=== PATIENT | male | born 1990 | race Caucasian/White ===

== ENCOUNTER 2019-05-01 05:42 | Emergency (ER) | payer SELFPAY ==
[~2019-05-01] VITALS: Ht 177.8 cm; Wt 81.6 kg
[~2019-05-01 05:42] MED LIST: ALPRAZOLAM1 MG ORAL; VALIUM10 MG ORAL; XANAX0.5 MG ORAL
[2019-05-01] MEDS ORDERED: NKM (05:51)
[2019-05-01 05:53] VITALS: BP 130/95
--- NOTE | 2019-05-01 05:55 | NUR ---
ER Nurse Note: Pt walked in c/o nausea, abd pain. Pt stated he took Fentyl, unknown dose, around 0000. Pt stated he kristen weak, pain in abd. Pt no vomiting, VSS, stable. Will continue to montior.
[2019-05-01] MEDS ORDERED: Mylanta II UD 30ml ORAL ONE (06:00)
[2019-05-01] MEDS ORDERED: Ondansetron ODT 8mg tab ORAL ONE (06:00)
[2019-05-01] MEDS ORDERED: Lidocaine 2% Visc 15ml soln ORAL ONE (06:00)
[2019-05-01] MEDS ORDERED: Dicyclomine HCl 10mg/5ml oral soln ORAL ONE (06:00)
[2019-05-01] MEDS ORDERED: ZOFRAN4 MG ORAL (06:06)
[2019-05-01] MEDS ORDERED: CLONIDINE HCL0.1 MG PO (06:06)
[2019-05-01] MEDS ORDERED: DICYCLOMINE HCL10 MG ORAL (06:06)
[2019-05-01] MEDS ORDERED: PEPCID AC20 M2 PO (06:06)
--- NOTE | 2019-05-01 06:07 | Emergency Room Report ---
History of Present Illness General Chief Complaint: Nausea Source: Patient Present Illness HPI 28-year-old male history of fentanyl abuse history of utilizing pseudonym's in order to obtain scheduled prescriptions, patient is requesting pain medications , patient states he is fentanyl prior to coming around 12 AM, he is now having nausea vomiting diarrhea and abdominal cramps, patient presents for evaluation Allergies: Coded Allergies: No Known Allergies (Unverified , 04/11/19) Patient History Past Medical History: see triage record Social History: Reports: smoking, drug use - Fentanyl Reviewed Nursing Documentation: PMH: Agreed; PSxH: Agreed Nursing Documentation-PMH Past Medical History: No History, Except For Review of Systems All Other Systems: negative except mentioned in HPI Physical Exam Vital Signs Date Time Temp Pulse Resp B/P (MAP) Pulse Ox O2 Delivery O2 Flow Rate FiO2 05/01/19 05:48 98.1 98 13 130/95 (107) 100 Room Air General Appearance: well appearing, no apparent distress Head: normocephalic, atraumatic ENT: hearing grossly normal, normal voice Neck: full range of motion, supple Respiratory: no respiratory distress, speaking full sentences Musculoskeletal: no calf tenderness Neurologic: alert, normal gait Psychiatric: mood/affect normal Skin: other - Track gutierres on arms Medical Decision Making Diagnostic Impression: Primary Impression: Opioid withdrawal ER Course 28-year-old male presents with opioid withdrawal, patient counseled that he will not receive any pain medications in the ED, patient was also confronted that he is breaking the law by using pseudonym's patient counseled that he must give his proper name and ID will provide patient with symptomatic control disposition home with return precautions Last Vital Signs Date Time Temp Pulse Resp B/P (MAP) Pulse Ox O2 Delivery O2 Flow Rate FiO2 05/01/19 05:53 98.1 98 13 130/95 100 Room Air Disposition: HOME, SELF-CARE Condition: Stable Scripts Dicyclomine Hcl* (DICYCLOMINE HCL*) 10 Mg Capsule 10 MG ORAL QID PRN for Abdominal cramps, #20 CAP Prov: Jamaal Perez MD 05/01/19 Clonidine Hcl (CLONIDINE HCL) 0.1 Mg Tablet 0.1 MG PO TID PRN for Abdominal cramps, #21 TAB Prov: Jamaal Perez MD 05/01/19 Famotidine (PEPCID AC) 20 Mg Tablet 20 MG PO BID, #60 TAB Prov: Jamaal Perez MD 05/01/19 Ondansetron (Zofran) 4 Mg Tablet 4 MG ORAL Q8H PRN for Nausea & Vomiting, #30 TAB 0 Refills Prov: Jamaal Perez MD 05/01/19 Referrals: NOT CHOSEN IPA/,REFERRING (PCP) [facility] Patient Instructions: Opioid Use Disorder, Opioid Withdrawal Additional Instructions: The patient was provided with discharge instructions, notified to follow-up with a primary care doctor and or specialist in the next 24-48 hours, and to return to the ED if they have worsening of their symptoms. Please note that this report is being documented using [employer] technology. This can lead to erroneous entry secondary to incorrect interpretation by the dictating instrument. Jamaal Perez MD May 01, 2019 06:07
[2019-05-01 06:31] VITALS: BP 133/96
--- NOTE | 2019-05-01 06:31 | NUR ---
ER Nurse Note: Pt seen, treated, medically cleared for discharge by ERMD. Discharge instuctions and prescriptions given with repeat verbalization by pt. Emphasized to follow up with primay care provider. All orders completed per ERMD orders. Pt a&ox4, VSS, no signs of distress. ID band removed. All questions answered per pt's questions. 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 Provided pt [facility] address. Pt stated he will go to his friends place but did not share the location. Food offered. Pt left with all belongings with appropriate clothing, left with own transportation.
== END 2019-05-01 06:31 | disposition home or self-care (01) ==
LOC: EMR 05:52
DX: F11.23 Opioid dependence with withdrawal (principal); F17.200 Nicotine dependence, unspecified, uncomplicated
CPT/HCPCS: 99282; Q0162

== ENCOUNTER 2019-08-11 16:00 | Emergency (ER) | payer SELFPAY ==
[~2019-08-11] VITALS: Ht 180.3 cm; Wt 72.6 kg
[~2019-08-11 16:00] MED LIST changes: +CLONIDINE HCL0.1 MG PO; +DICYCLOMINE HCL10 MG ORAL; +NKM; +PEPCID AC20 M2 PO; +ZOFRAN4 MG ORAL
[2019-08-11 16:22] VITALS: BP 120/78
[2019-08-11] MEDS ORDERED: Ketorolac 30mg Inj IM ONE ×2 (16:30→17:30)
--- NOTE | 2019-08-11 16:44 | NUR ---
ED Nurse Note: x-ray on bedside.
--- NOTE | 2019-08-11 17:14 | Emergency Room Report ---
History of Present Illness General Chief Complaint: Multiple Trauma/Fall Source: Patient Present Illness HPI 29-year-old male with significant history of drug-seeking behavior, opiate abuse , and anxiety here complaining of pain in right lower extremity after fall 1939 5 minutes prior to arrival. Patient refer states that he did hit his head however when told that we need to do a head CT scan as patient noticed slight loss of consciousness and nothing but Tylenol can be given prior to head CT scan to reduce the risk of increased bleeding patient changes the story and states that he did not hit his head. Head appears atraumatic. Keeps insisting on getting narcotics for pain as he cannot move however when I entered the room patient was moving his arms and legs around and talking the phone. Rates the pain 10 out of 10 with radiation denying tingling numbness. Patient also complains of anxiety and wants anxiety medication. Extensive cures history has been noted. Denies all other associate symptoms such as abdominal pain, nausea vomiting, chest pain, shortness of breath, headache and dizziness. Allergies: Coded Allergies: No Known Allergies (Unverified , 04/11/19) Patient History Past Medical History: see triage record Past Surgical History: unable to obtain Pertinent Family History: none Immunizations: UTD Reviewed Nursing Documentation: PMH: Agreed; PSxH: Agreed Nursing Documentation-PMH Past Medical History: No History, Except For History Of Psychiatric Problem: Yes - anxiety Review of Systems All Other Systems: negative except mentioned in HPI Physical Exam Vital Signs Date Time Temp Pulse Resp B/P (MAP) Pulse Ox O2 Delivery O2 Flow Rate FiO2 08/11/19 16:08 98.1 100 19 119/63 (81) 98 Room Air Sp02 EP Interpretation: reviewed, normal General Appearance: no apparent distress, alert, GCS 15, non-toxic Head: normocephalic, atraumatic Eyes: bilateral eye normal inspection, bilateral eye PERRL ENT: hearing grossly normal, normal pharynx, no angioedema, normal voice Neck: full range of motion, supple/symm/no masses Respiratory: chest non-tender, lungs clear, normal breath sounds, no rhonchi, no respiratory distress, no retraction, no accessory muscle use, no wheezing, speaking full sentences Cardiovascular #1: regular rate, rhythm, no edema, no murmur, normal capillary refill Cardiovascular #2: 2+ dorsalis pedis (R), 2+ dorsalis pedis (L) Gastrointestinal: normal bowel sounds, non tender, soft, non-distended, no guarding, no rebound Rectal: deferred Genitourinary: no CVA tenderness Musculoskeletal: back normal, normal range of motion, digits/nails normal, no calf tenderness, pelvis stable, gait/station normal, non-tender Neurologic: alert, motor strength/tone normal, oriented x3, sensory intact, responsive, speech normal Psychiatric: judgement/insight normal, memory normal, mood/affect normal, no suicidal/homicidal ideation Skin: no rash Lymphatic: no adenopathy Medical Decision Making PA Attestation All diagnoses and treatment plans were reviewed and discussed with my supervising physician Dr. Tavarez Diagnostic Impression: Primary Impression: Multiple contusions Additional Impression: Drug-seeking behavior ER Course 29-year-old male with significant history of drug-seeking behavior, opiate abuse , and anxiety here complaining of pain in right lower extremity after fall 1940 5 minutes prior to arrival. Patient refer states that he did hit his head however when told that we need to do a head CT scan as patient noticed slight loss of consciousness and nothing but Tylenol can be given prior to head CT scan to reduce the risk of increased bleeding patient changes the story and states that he did not hit his head. Head appears atraumatic. Keeps insisting on getting narcotics for pain as he cannot move however when I entered the room patient was moving his arms and legs around and talking the phone. Rates the pain 10 out of 10 with radiation denying tingling numbness. Patient also complains of anxiety and wants anxiety medication. Extensive cures history has been noted. Denies all other associate symptoms such as abdominal pain, nausea vomiting, chest pain, shortness of breath, headache and dizziness. Ddx considered but are not limited to: Knee sprain, strain, fracture, contusion , meniscus tear injury, multiple contusions Vital signs: are WNL, pt. is afebrile H&PE are most consistent with: Multiple contusion ORDERS: Knee x-ray, tib-fib x-ray, hip and pelvic x-ray, Motrin, lidocaine patch ER intervention: 2 injections of Toradol 15 mg IM each DISCHARGE: At this time pt. is stable for d/c to home. Will provide printed patient care instructions, and any necessary prescriptions. Care plan and follow up instructions have been discussed with the patient prior to discharge. Drug-seeking behavior is been noticed I told patient that no morphine or no narcotics can be given as patient requested. Patient raised his voice and insistent on getting narcotics. Patient to follow with pain management I explained to him that due to his extensive cures history no narcotics can be given in the emergency department at this time. Also noted indication due to extent of patient's injuries for morphine injection. Patient to follow-up with pain management. Other X-Ray Diagnostic Results Other X-Ray Diagnostic Results #1: X-Ray ordered: Right hip and pelvis # of Views/Limited Vs Complete: 3 View Indication: Pain EP Interpretation: Yes PA Xray: Interpretation reviewed, by supervising MD, and agrees with findings. Interpretation: no dislocation, no soft tissue swelling, no fractures Impression: No acute disease Electronically Signed by: Reyna Bauer PA-C Other X-Ray Diagnostic Results #2: X-Ray ordered: Right knee # of Views/Limited Vs Complete: 2 View Indication: Pain EP Interpretation: Yes PA Xray: Interpretation reviewed, by supervising MD, and agrees with findings. Interpretation: no dislocation, no soft tissue swelling, no fractures Impression: No acute disease Electronically Signed by: Reyna Bauer PA-C Other X-Ray Diagnostic Results #3: X-Ray ordered: Right tib-fib # of Views/Limited Vs Complete: 3 View Indication: Pain EP Interpretation: Yes PA Xray: Interpretation reviewed, by supervising MD, and agrees with findings. Interpretation: no dislocation, no soft tissue swelling, no fractures Impression: No acute disease Electronically Signed by: Reyna Bauer PA-C Last Vital Signs Date Time Temp Pulse Resp B/P (MAP) Pulse Ox O2 Delivery O2 Flow Rate FiO2 08/11/19 16:22 100 19 Room Air 08/11/19 16:22 98.1 120/78 98 Disposition: HOME, SELF-CARE Condition: Stable Scripts Lidocaine Patch* (Lidoderm Patch*) 1 Each Adh..patch 1 PATCH TOPIC DAILY, #7 PATCH 0 Refills Patch(es) may remain in place for up to 12 hours in any 24-hour period. Prov: Reyna Guerra 08/11/19 Ibuprofen* (MOTRIN*) 600 Mg Tablet 600 MG ORAL Q8H PRN for For Pain, #30 TAB 0 Refills Prov: Reyna Guerra 08/11/19 Patient Instructions: Contusion, [id number] Additional Instructions: Take medication as directed, follow-up with your primary care provider, at this time no narcotics can be prescribed as you should be getting them from pain management due to your history of taking narcotics. No anxiety medication can be given as you need to establish a primary care and psychiatrist in order to write them. Reyna Guerra Aug 11, 2019 17:14
[2019-08-11] MEDS ORDERED: IBUPROFEN600 MG ORAL (17:15)
[2019-08-11] MEDS ORDERED: LIDODERM700 M1 TOPIC (17:15)
[2019-08-11] MEDS ORDERED: Ketorolac 30mg Inj ONE (17:22)
[2019-08-11 17:30] VITALS: BP 120/78
--- NOTE | 2019-08-11 17:30 | NUR ---
ER DISCHARGE NOTE: Pt is cleared to be discharge per ERMD,. Pt is AOx4, on RA, VSS. pt was given dc and prescription instructions, pt was able to verbalize understanding, pt id band removed. pt is able to ambulate with steady gait. Pt left ER with all belongings.
--- NOTE | 2019-08-12 10:22 | Diagnostic Imaging Report ---
Indication: Trauma, pain, status post fall Technique: One view the pelvis, 2 views of the right hip Comparison: none Findings: No acute fractures. No dislocations. Joint spaces are preserved. Impression: Negative
--- NOTE | 2019-08-12 10:23 | Diagnostic Imaging Report ---
Indication: Trauma, pain, status post fall Technique: 2 views of the right knee Comparison: none Findings: No acute fractures. No dislocations. The joint spaces are preserved Impression: Negative
--- NOTE | 2019-08-12 10:24 | Diagnostic Imaging Report ---
Indication: Pain, trauma, status post fall Technique: 2 views of the right tibia and fibula Comparison: none Findings: No acute fractures. No dislocations. The joint spaces are preserved Impression: Negative
== END 2019-08-11 17:30 | disposition home or self-care (01) ==
LOC: EMR 16:30
DX: M79.604 Pain in right leg (principal); F41.9 Anxiety disorder, unspecified; Z76.5 Malingerer [conscious simulation]; W19.XXXA Unspecified fall, initial encounter; Y92.9 Unspecified place or not applicable
CPT/HCPCS: 73502; 73560; 73590; 96372; 99284; J1885

== ENCOUNTER → 2019-08-14 | Emergency (ER) | payer SELFPAY ==
[~2019-08-14] VITALS: Ht 177.8 cm; Wt 68.0 kg
[~2019-08-14] MED LIST changes: +IBUPROFEN600 MG ORAL; +LIDODERM700 M1 TOPIC
[2019-08-14 17:36] VITALS: BP 113/68
--- NOTE | 2019-08-14 18:00 | Emergency Room Report ---
History of Present Illness General Chief Complaint: General Complaint Source: Patient Present Illness HPI 29-year-old male with significant history of opioid and benzodiazepine dependence who has been to [facility] multiple times with similar complaint here complaining of extreme anxiety. Reports that he last took his Ativan and Valium 3 days ago and ran out and has not been able to make an appointment with psychiatrist as his insurance changed a month ago and has not been able to follow-up. Patient has also given the same excuse in the past. Also complains of pain and wants narcotics as well as benzodiazepines today. Appears to be under the influence of unknown substances. Denies any chest pain, shortness of breath, palpitation, headache and dizziness. Denies SI and HI. Drug-seeking behavior has been observed. Allergies: Coded Allergies: No Known Allergies (Unverified , 04/11/19) Patient History Past Medical History: see triage record Past Surgical History: unable to obtain Family History: none Immunizations: UTD Reviewed Nursing Documentation: PMH: Agreed; PSxH: Agreed Nursing Documentation-PMH Past Medical History: No History, Except For Hx Cardiac Problems: No - anxiety Review of Systems All Other Systems: negative except mentioned in HPI Physical Exam Vital Signs Date Time Temp Pulse Resp B/P (MAP) Pulse Ox O2 Delivery O2 Flow Rate FiO2 08/14/19 17:36 98.2 94 17 113/68 (83) 95 Room Air Sp02 EP Interpretation: reviewed, normal General Appearance: alert/responsive, no apparent distress, GCS 15, non-toxic Head: atraumatic Eyes: PERRL, lids + conjunctiva normal ENT: hearing intact, no angioedema Neck: supple/symm/no masses, no meningismus Respiratory: effort normal, no wheezing, chest symmetrical Cardiovascular: regular rate, rhythm, no edema Gastrointestinal: non-tender, no mass, non-distended, no rebound/guarding, normal bowel sounds Musculoskeletal: gait & station normal, normal ROM, strength & tone normal, non -tender Neurologic: oriented x3, sensory intact, normal speech Psychiatric: anxious, other - drug seeking behavior Skin: no rash Lymphatic: normal inspection Medical Decision Making PA Attestation All my diagnosis and treatment plans were reviewed ad discussed with my supervising physician Dr. Cruz Diagnostic Impression: Primary Impression: Anxiety Additional Impressions: Benzodiazepine dependence Narcotic dependency, continuous ER Course 29-year-old male with significant history of opioid and benzodiazepine dependence who has been to [facility] multiple times with similar complaint here complaining of extreme anxiety. Reports that he last took his Ativan and Valium 3 days ago and ran out and has not been able to make an appointment with psychiatrist as his insurance changed a month ago and has not been able to follow-up. Patient has also given the same excuse in the past. Also complains of pain and wants narcotics as well as benzodiazepines today. Appears to be under the influence of unknown substances. Denies any chest pain, shortness of breath, palpitation, headache and dizziness. Denies SI and HI. Drug-seeking behavior has been observed. Ddx considered but are not limited to: generalized anxiety disorder, panic attack, depression with psycotic featurs, bipolar disorder, drug overdose Vital signs: are WNL, pt. is afebrile H&PE are most consistent with: Benzodiazepine dependence, narcotic dependency ORDERS: none required at this time, the diagnosis is clinical ED INTERVENTIONS: None required at this time. DISCHARGE: At this time pt. is stable for d/c to home. Will provide printed patient care instructions, and any necessary prescriptions. Care plan and follow up instructions have been discussed with the patient prior to discharge. Gave patient a list of mental health facilities which he can go to patient insisting getting a dose of Ativan and narcotics here. Drug-seeking behavior is very obvious. Advised patient follow with psychiatrist as well as pain management. Patient was also seen here in [facility] by me 3 days prior for multi-contusion and was given prescription for ibuprofen and Tylenol. Patient is requesting more ibuprofen and I advised him that it is [id number]. Last Vital Signs Date Time Temp Pulse Resp B/P (MAP) Pulse Ox O2 Delivery O2 Flow Rate FiO2 08/14/19 17:36 98.2 94 17 113/68 (83) 95 Room Air Disposition: HOME, SELF-CARE Condition: Stable Reyna Guerra Aug 14, 2019 18:00
== END | disposition home or self-care (01) ==
LOC: EMR 19:28
DX: F41.9 Anxiety disorder, unspecified (principal); F13.20 Sedative, hypnotic or anxiolytic dependence, uncomplicated; F11.20 Opioid dependence, uncomplicated
CPT/HCPCS: 99282